=== PATIENT | male | born 1995 | race African-American/Black ===

== ENCOUNTER 2021-07-04 19:04 | Emergency (ER) ==
[~2021-07-04] VITALS: Ht 180.3 cm; Wt 81.5 kg
== END 2021-07-05 01:42 | disposition left against medical advice (07) ==
LOC: M ED 19:04
DX: Z53.21 Procedure and treatment not carried out due to patient leaving prior to being seen by health care provider (principal)

== ENCOUNTER 2021-12-15 09:09 | Inpatient (IN) | payer OTHER ==
[~2021-12-15] VITALS: Ht 177.8 cm; Wt 85.3 kg
[2021-12-15 10:27] LABS: HEMATOCRIT 49.5 % (42.0-52.0); HEMOGLOBIN 15.9 g/dl (13.5-17.5); MEAN CORPUSCULAR HEMOGLOBIN 27.7 pg (27.0-33.0); MEAN CORPUSCULAR HGB CONC 32.1 g/dl (32.0-36.5); MEAN CORPUSCULAR VOLUME 86.1 fl (80.0-96.0); PLATELET COUNT, AUTOMATED 312 10^3/uL (150-450); RED BLOOD COUNT 5.75 10^6/uL (4.30-6.10); WHITE BLOOD COUNT 5.3 10^3/uL (4.0-10.0)
[2021-12-15] MEDS ORDERED: VITA1CAP25 PO (10:33)
[2021-12-15] MEDS ORDERED: LEXA1TAB2 PO (10:33)
[2021-12-15] MEDS ORDERED: TRAZ-257 PO (10:33)
[2021-12-15 10:46] LABS: AMPHETAMINES LEVEL URINE NEGATIVE (NEGATIVE); BARBITURATES URINE NEGATIVE (NEGATIVE); BENZODIAZEPINES URINE NEGATIVE (NEGATIVE); CANNABINOIDS URINE NEGATIVE (NEGATIVE); COCAINE METABOLITE URINE NEGATIVE (NEGATIVE); METHADONE URINE NEGATIVE (NEGATIVE); OPIATES URINE NEGATIVE (NEGATIVE); PHENCYCLIDINE URINE NEGATIVE (NEGATIVE)
[2021-12-15 10:57] LABS: ALBUMIN 3.8 GM/DL (3.2-5.2); ALT/SGPT 21 U/L (12-78); BILIRUBIN,DIRECT < 0.1 MG/DL (0.0-0.2); BILIRUBIN,TOTAL 0.2 MG/DL (0.2-1.0); BLOOD UREA NITROGEN 12 MG/DL (7-18); CARBON DIOXIDE LEVEL 31 MEQ/L (21-32); CHLORIDE LEVEL 107 MEQ/L (98-107); ETHYL ALCOHOL (ETHANOL) < 0.003 % (0.000-0.010); GLOMERULAR FILTRATION RATE > 60.0 (>60); GLUCOSE, FASTING 88 MG/DL (70-100); POTASSIUM SERUM 4.7 MEQ/L (3.5-5.1); SALICYLATE LEVEL < 1.7 MG/DL (5.0-30.0); SODIUM LEVEL 140 MEQ/L (136-145); TOTAL PROTEIN 6.9 GM/DL (6.4-8.2)
[2021-12-15 10:58] LABS: ACETAMINOPHEN LEVEL < 2.0 UG/ML (10.0-30.0); THYROID STIMULATING HORMONE 0.801 uIU/ML (0.358-3.740)
[2021-12-15 11:39] LABS: RSV AMPLIFICATION NEGATIVE (NEGATIVE)
[2021-12-15] MEDS ORDERED: HOME MED LIST COMPLETE! XX SCH (12:05)
[2021-12-15] MEDS ORDERED: MAALOX 30 ML SUSP *UDC PO PRN (16:50)
[2021-12-15] MEDS ORDERED: OLANZapine ORAL DISINTEGRATING TAB 5MG PO PRN (16:50)
[2021-12-15] MEDS ORDERED: MOM 30ML SUSPENSION UDC PO PRN (16:50)
[2021-12-15] MEDS ORDERED: ACETAMINOPHEN TAB 650MG DOSE (2X325MG) PO PRN (16:50)
[2021-12-15] MEDS ORDERED: NICOTINE 21MG/24HR 1 EA TRANSDERMAL TD PRN (16:50)
[2021-12-15 17:21] VITALS: BP 121/71
[2021-12-15] MEDS: traZODone 100 MG TAB PO SCH (21:00)
[2021-12-15] MEDS ORDERED: ARIPiprazole 2 MG TAB PO ONE (21:00)
[2021-12-16 06:33] VITALS: BP 133/73
[2021-12-16] MEDS: VITAMIN D 1,000 INTERNATIONAL UNITS TABLET PO SCH (09:25)
[2021-12-16] MEDS: ESCITALOPRAM OXALATE 10 MG TAB (LEXAPRO) PO SCH (09:25)
[2021-12-16] MEDS: traZODone 100 MG TAB PO SCH (21:00)
[2021-12-16] MEDS: ARIPiprazole 2 MG TAB PO SCH (21:00)
[2021-12-17 06:39] VITALS: BP 113/57
[2021-12-17 08:08] LABS: CHOLESTEROL RISK RATIO 3.676 (<5)
[2021-12-17] MEDS: VITAMIN D 1,000 INTERNATIONAL UNITS TABLET PO SCH (09:00)
[2021-12-17] MEDS: ESCITALOPRAM OXALATE 10 MG TAB (LEXAPRO) PO SCH (09:00)
[2021-12-17] MEDS: ARIPiprazole 2 MG TAB PO SCH (20:49)
[2021-12-17] MEDS: traZODone 100 MG TAB PO SCH (20:49)
[2021-12-18 06:57] VITALS: BP 96/52
[2021-12-18] MEDS: ESCITALOPRAM OXALATE 10 MG TAB (LEXAPRO) PO SCH (09:00)
[2021-12-18] MEDS: VITAMIN D 1,000 INTERNATIONAL UNITS TABLET PO SCH (09:00)
[2021-12-18] MEDS: ARIPiprazole 2 MG TAB PO SCH (21:00)
[2021-12-18] MEDS: traZODone 100 MG TAB PO SCH (21:00)
[2021-12-19 08:26] VITALS: BP 120/65
[2021-12-19] MEDS: ESCITALOPRAM OXALATE 10 MG TAB (LEXAPRO) PO SCH (09:00)
[2021-12-19] MEDS: VITAMIN D 1,000 INTERNATIONAL UNITS TABLET PO SCH (09:00)
[2021-12-19] MEDS: ARIPiprazole 2 MG TAB PO SCH (21:00)
[2021-12-19] MEDS: traZODone 100 MG TAB PO SCH (21:00)
[2021-12-20] MEDS: ESCITALOPRAM OXALATE 10 MG TAB (LEXAPRO) PO SCH (09:00)
[2021-12-20] MEDS: VITAMIN D 1,000 INTERNATIONAL UNITS TABLET PO SCH (09:00)
[2021-12-20] MEDS: traZODone 100 MG TAB PO SCH (21:00)
[2021-12-20] MEDS: ARIPiprazole 2 MG TAB PO SCH (21:00)
[2021-12-21] MEDS: ESCITALOPRAM OXALATE 10 MG TAB (LEXAPRO) PO SCH (09:00)
[2021-12-21] MEDS: VITAMIN D 1,000 INTERNATIONAL UNITS TABLET PO SCH (09:00)
[2021-12-21 10:32] VITALS: BP 107/52
[2021-12-21] MEDS: ARIPiprazole 2 MG TAB PO SCH (20:40)
[2021-12-21] MEDS: traZODone 100 MG TAB PO SCH (20:41)
[2021-12-22] MEDS: VITAMIN D 1,000 INTERNATIONAL UNITS TABLET PO SCH (09:00)
[2021-12-22] MEDS: ESCITALOPRAM OXALATE 10 MG TAB (LEXAPRO) PO SCH (09:00)
[2021-12-22 10:00] VITALS: BP 113/59
[2021-12-22] MEDS: traZODone 100 MG TAB PO SCH (21:59)
[2021-12-22] MEDS: ARIPiprazole 2 MG TAB PO SCH (21:59)
[2021-12-23] MEDS: VITAMIN D 1,000 INTERNATIONAL UNITS TABLET PO SCH (09:00)
[2021-12-23] MEDS: ESCITALOPRAM OXALATE 10 MG TAB (LEXAPRO) PO SCH (09:00)
[2021-12-23] MEDS: ARIPiprazole 2 MG TAB PO SCH (21:24)
[2021-12-23] MEDS: traZODone 100 MG TAB PO SCH (21:24)
[2021-12-24 07:06] VITALS: BP 147/89
[2021-12-24] MEDS: ESCITALOPRAM OXALATE 10 MG TAB (LEXAPRO) PO SCH (09:00)
[2021-12-24] MEDS: VITAMIN D 1,000 INTERNATIONAL UNITS TABLET PO SCH (09:00)
[2021-12-24] MEDS: traZODone 100 MG TAB PO SCH (20:46)
[2021-12-24] MEDS: ARIPiprazole 2 MG TAB PO SCH (20:46)
[2021-12-25 06:00] VITALS: BP 112/55
[2021-12-25] MEDS ORDERED: ABIL1TAB13 PO (08:14)
[2021-12-25] MEDS ORDERED: NICO21PAT TD (08:14)
[2021-12-25] MEDS: ESCITALOPRAM OXALATE 10 MG TAB (LEXAPRO) PO SCH (08:35)
[2021-12-25] MEDS: VITAMIN D 1,000 INTERNATIONAL UNITS TABLET PO SCH (08:35)
== END 2021-12-25 12:54 | disposition home or self-care (01) | DRG 885 ==
LOC: EDBD 09:09 → M ED 09:09 → M ED INP 09:10 → M PSY 09:10
PROVIDERS: ADMIT Psychiatry & Neurology Psychiatry; ATTEND Psychiatry & Neurology Psychiatry
DX: F33.3 Major depressive disorder, recurrent, severe with psychotic symptoms (principal); Z79.899 Other long term (current) drug therapy; Z91.19 Patient's noncompliance with other medical treatment and regimen